=== PATIENT | male | born 1985 | race Hispanic/Latino ===

== ENCOUNTER 2017-04-06 20:48 | Emergency (ER) | payer SELFPAY ==
[~2017-04-06] VITALS: Ht 165.1 cm; Wt 126.6 kg
[2017-04-06] MEDS ORDERED: AZITHROMYCIN 250 MG TAB PO STA (22:36)
[2017-04-06] MEDS ORDERED: CEFTRIAXONE SOD 1 GM VIAL IM ONE (22:45)
[2017-04-06] MEDS ORDERED: CEFTRIAXONE SOD 1 GM VIAL ONE (22:45)
[2017-04-06 23:05] LABS: BILIRUBIN,URINE NEGATIVE (NEGATIVE); KETONES,URINE TRACE (NEGATIVE); LEUKOCYTE ESTERASE ,URINE 2+ (NEGATIVE); NITRITE,URINE NEGATIVE (NEGATIVE); URINE UROBILINOGEN 4 mg/dL (0.2 - 1)
[2017-04-06 23:06] LABS: CLARITY,URINE CLOUDY (CLEAR); COLOR,URINE YELLOW (YELLOW); PROTEIN,URINE DIPSTICK 1+ (NEGATIVE)
[2017-04-06 23:17] LABS: AMORPHOUS SEDIMENT,URINE FEW (FEW); BACTERIA,URINE MODERATE /HPF; EPITHELIAL CELLS,URINE FEW /LPF; WBC,URINE (MAN) 21-50 /HPF (0-5)
[2017-04-07 00:23] VITALS: BP 132/86
== END 2017-04-07 00:29 | disposition home or self-care (01) ==
LOC: ER 20:48
DX: Z20.2 Contact with and (suspected) exposure to infections with a predominantly sexual mode of transmission (principal); A56.01 Chlamydial cystitis and urethritis; B37.42 Candidal balanitis; N47.1 Phimosis; E11.9 Type 2 diabetes mellitus without complications
CPT/HCPCS: 81001; 87086; 99283; J0696

== ENCOUNTER 2018-11-30 09:14 | Emergency (ER) | payer SELFPAY ==
[~2018-11-30] VITALS: Ht 165.1 cm; Wt 126.6 kg
--- NOTE | 2018-11-30 10:30 | Diagnostic Imaging Report ---
EXAM: CHEST SINGLE (PORTABLE) DATE: 11/30/2018 9:33 AM INDICATION: SOB COMPARISON: None FINDINGS: The trachea is midline. There are mild left basilar opacity suggestive of atelectasis. There is no evidence for large focal consolidation, pneumothorax, or significant pleural effusion. The cardiac silhouette appears magnified by technique. Mediastinal contours are unremarkable. No acute osseous abnormalities identified. The surrounding soft tissues are unremarkable. IMPRESSION: No acute cardiopulmonary process identified. Signed by: Dr. Vern Taylor MD on 11/30/2018 10:27 AM
[2018-11-30] MEDS ORDERED: VALACYCLOVIR1000 MG PO (10:35)
[2018-11-30] MEDS ORDERED: PREDNISONE20 MG PO (10:35)
[2018-11-30] MEDS ORDERED: EYE DROP TEARS15 ML OS (10:35)
--- NOTE | 2018-11-30 11:09 | Diagnostic Imaging Report ---
Examination: CT head without contrast Clinical Indication: Right face weakness. Technique: Transaxial noncontrast images from the skull base through the vertex were obtained. Sagittal and coronal reformatted images were done. Dose modulation, iterative reconstruction, and/or weight based adjustment of the mA/kV was utilized to reduce the radiation dose to as low as reasonably achievable. Comparison: None. Findings: Scalp: Mild left parietal scalp swelling, which could be from prior trauma. Bones: Intact. No fractures. No blastic or lytic lesions. Brain sulci: Appropriate for patient's age. Ventricles: Normal in size and configuration. No hydrocephalus. Extra-axial space: No abnormalities. Parenchyma: No abnormal densities. No masses, hemorrhage, or acute or chronic cortical based vascular insults. Suprasellar region: No abnormalities. Craniocervical junction: The foramen magnum is patent. No Chiari one malformation. Impression: No acute intracranial abnormality. Signed by: Dr. Kacy Oliver M.D. on 11/30/2018 11:06 AM
[2018-11-30] MEDS ORDERED: CLONIDINE HCL 0.1 MG TAB ONE (11:18)
[2018-11-30] MEDS ORDERED: CLONIDINE HCL 0.1 MG TAB PO ONE (11:30)
[2018-11-30 12:05] VITALS: BP 141/100
== END 2018-11-30 12:14 | disposition home or self-care (01) ==
LOC: ER 09:14
DX: R53.1 Weakness (principal); G51.0 Bell's palsy
CPT/HCPCS: 70450; 71045; 99284